=== PATIENT | male | born 1960 | race African-American/Black ===

== ENCOUNTER 2023-06-07 20:54 | Emergency (ER) | payer OTHER ==
[2023-06-07 21:02] VITALS: BP 109/68; PULSE 75; RESP 14; TEMP 97.5; BMI 23.5
== END 2023-06-07 21:43 | disposition home or self-care (01) ==
LOC: JERFT 20:54
DX: R04.0 Epistaxis (principal)
CPT/HCPCS: 99282-25

== ENCOUNTER 2024-06-19 13:28 | Emergency (ER) | payer OTHER ==
[2024-06-19 13:36] VITALS: BP 126/74; PULSE 62; RESP 18; TEMP 97.6; BMI 24.3
== END 2024-06-19 19:04 | disposition home or self-care (01) ==
LOC: JERFT 13:28 → JER 13:28 → JERFT 19:04
DX: M17.11 Unilateral primary osteoarthritis, right knee (principal); M71.21 Synovial cyst of popliteal space [Baker], right knee; M25.561 Pain in right knee
CPT/HCPCS: 73562-TC-RT-FY; 93971-TC; 99284-25